=== PATIENT | female | born 2000 | race Two or more races ===

== ENCOUNTER 2020-11-09 23:00 | Observation (INO) | payer SELFPAY ==
[~2020-11-09] VITALS: Ht 167.6 cm; Wt 56.2 kg
== END 2020-11-10 00:35 | disposition home or self-care (01) ==
LOC: LDRP 23:00
PROVIDERS: ADMIT Obstetrics & Gynecology; ATTEND Obstetrics & Gynecology
DX: O62.9 Abnormality of forces of labor, unspecified (principal); O26.893 Other specified pregnancy related conditions, third trimester; R10.2 Pelvic and perineal pain; Z3A.38 38 weeks gestation of pregnancy
CPT/HCPCS: 59025; 81002; G0378; G0379